=== PATIENT | male | born 1985 | race Two or more races ===

== ENCOUNTER 2020-08-04 20:33 | Emergency (ER) | payer OTHER ==
[~2020-08-04] VITALS: Ht 167.6 cm; Wt 97.5 kg
[~2020-08-04 20:33] MED LIST: NO TOMA
[2020-08-04] MEDS ORDERED: DUI500 PO (22:55)
[2020-08-04] MEDS ORDERED: MEDROLPACK PO (22:55)
== END 2020-08-04 22:58 | disposition home or self-care (01) ==
LOC: ER 20:33
DX: R21 Rash and other nonspecific skin eruption (principal)

== ENCOUNTER 2020-08-14 10:19 | Emergency (ER) | payer OTHER ==
[~2020-08-14] VITALS: Ht 167.6 cm; Wt 95.3 kg
[~2020-08-14 10:19] MED LIST changes: +DUI500 PO; +MEDROLPACK PO
[2020-08-14] MEDS ORDERED: NORFLEX100MG PO (15:46)
[2020-08-14] MEDS ORDERED: KETO10TA2 PO (15:46)
== END 2020-08-14 15:54 | disposition home or self-care (01) ==
LOC: ER 10:19
DX: G44.209 Tension-type headache, unspecified, not intractable (principal)